=== PATIENT | female | born 1930 | race Caucasian/White ===

== ENCOUNTER → 2018-09-22 | Outpatient (CLI) | payer MEDICARE | LOC: M.WC 08:00 | DX: I87.312 Chronic venous hypertension (idiopathic) with ulcer of left lower extremity (principal); L97.822 Non-pressure chronic ulcer of other part of left lower leg with fat layer exposed; L84 Corns and callosities; E03.9 Hypothyroidism, unspecified; K21.9 Gastro-esophageal reflux disease without esophagitis; M10.9 Gout, unspecified; M81.0 Age-related osteoporosis without current pathological fracture; J44.9 Chronic obstructive pulmonary disease, unspecified; F41.9 Anxiety disorder, unspecified ==

== ENCOUNTER → 2018-09-29 | Outpatient (CLI) | payer MEDICARE | LOC: M.WC 09-27 10:00 | DX: I87.312 Chronic venous hypertension (idiopathic) with ulcer of left lower extremity (principal); L97.822 Non-pressure chronic ulcer of other part of left lower leg with fat layer exposed; L84 Corns and callosities; E03.8 Other specified hypothyroidism; J44.9 Chronic obstructive pulmonary disease, unspecified; K21.9 Gastro-esophageal reflux disease without esophagitis; M81.0 Age-related osteoporosis without current pathological fracture; M10.9 Gout, unspecified; F41.9 Anxiety disorder, unspecified ==

== ENCOUNTER → 2018-10-06 | Outpatient (CLI) | payer MEDICARE | LOC: M.WC 04:55 | DX: I87.312 Chronic venous hypertension (idiopathic) with ulcer of left lower extremity (principal); L97.828 Non-pressure chronic ulcer of other part of left lower leg with other specified severity; L84 Corns and callosities; E03.9 Hypothyroidism, unspecified; J44.9 Chronic obstructive pulmonary disease, unspecified; K21.9 Gastro-esophageal reflux disease without esophagitis; M10.9 Gout, unspecified; M81.0 Age-related osteoporosis without current pathological fracture; F41.9 Anxiety disorder, unspecified ==

== ENCOUNTER → 2019-07-28 | Outpatient (CLI) | payer MEDICARE | LOC: M.WC 09:56 | DX: S81.801A Unspecified open wound, right lower leg, initial encounter (principal); E03.8 Other specified hypothyroidism; I87.2 Venous insufficiency (chronic) (peripheral); J44.9 Chronic obstructive pulmonary disease, unspecified; K21.9 Gastro-esophageal reflux disease without esophagitis; M81.0 Age-related osteoporosis without current pathological fracture; M10.9 Gout, unspecified; F41.9 Anxiety disorder, unspecified; Z90.49 Acquired absence of other specified parts of digestive tract; Z90.710 Acquired absence of both cervix and uterus; W54.0XXA Bitten by dog, initial encounter; Y93.89 Activity, other specified; Y92.89 Other specified places as the place of occurrence of the external cause; Y99.8 Other external cause status ==

== ENCOUNTER → 2019-08-01 | Outpatient (CLI) | payer MEDICARE | LOC: M.WC 04:58 | DX: S81.801D Unspecified open wound, right lower leg, subsequent encounter (principal); L03.115 Cellulitis of right lower limb; E03.8 Other specified hypothyroidism; J44.9 Chronic obstructive pulmonary disease, unspecified; K21.9 Gastro-esophageal reflux disease without esophagitis; M81.0 Age-related osteoporosis without current pathological fracture; M10.9 Gout, unspecified; F41.9 Anxiety disorder, unspecified; W54.0XXD Bitten by dog, subsequent encounter ==

== ENCOUNTER → 2019-08-10 | Outpatient (CLI) | payer MEDICARE | LOC: M.WC 05:29 | DX: S91.001D Unspecified open wound, right ankle, subsequent encounter (principal); L03.115 Cellulitis of right lower limb; E03.9 Hypothyroidism, unspecified; J44.9 Chronic obstructive pulmonary disease, unspecified; K21.9 Gastro-esophageal reflux disease without esophagitis; M10.9 Gout, unspecified; M81.0 Age-related osteoporosis without current pathological fracture; F41.9 Anxiety disorder, unspecified; W54.0XXD Bitten by dog, subsequent encounter ==

== ENCOUNTER → 2019-08-17 | Outpatient (CLI) | payer MEDICARE | LOC: M.WC 04:57 | DX: S81.801D Unspecified open wound, right lower leg, subsequent encounter (principal); L03.115 Cellulitis of right lower limb; E03.9 Hypothyroidism, unspecified; J44.9 Chronic obstructive pulmonary disease, unspecified; K21.9 Gastro-esophageal reflux disease without esophagitis; M10.9 Gout, unspecified; M81.0 Age-related osteoporosis without current pathological fracture; F41.9 Anxiety disorder, unspecified; W54.0XXD Bitten by dog, subsequent encounter ==

== ENCOUNTER → 2019-10-16 | Outpatient (CLI) | payer MEDICARE | LOC: M.ULTRA 14:55 | DX: I83.892 Varicose veins of left lower extremity with other complications (principal) ==